=== PATIENT | female | born 1985 | race Two or more races ===

== ENCOUNTER 2018-05-28 08:01 | Emergency (ER) | payer OTHER ==
[2018-05-28 08:09] VITALS: BP 104/59; PULSE 86; TEMP 98.4; BMI 39.0
--- NOTE | 2018-05-28 08:37 | PDOC ---
History of Present Illness - General Chief Complaint: Cold Symptoms Stated Complaint: COLD SYMPTOMS Time Seen by Provider: 05/28/18 08:20 History Source: Patient Exam Limitations: No Limitations - History of Present Illness Initial Comments: 05/28/18 09:02 Came to ER for evaluation of worsening cough, wheezing, general body aches, chills but no fevers. States onset was 2 days ago and is progressively worsened. Is coughing with no phlegm production. Has used albuterol at home but not improving. Timing/Duration: reports: just prior to arrival, getting worse Severity: reports: mild, moderate Modifying Factors: improves with: albuterol inhaler Associated Symptoms: reports: cough, dizziness, fever/chills, lightheadedness, muscle aches, nasal congestion, wheezing Past History - Travel Traveled outside of the country in the last 30 days: No Close contact w/someone who was outside of country & ill: No - Past Medical History Allergies/Adverse Reactions: Allergies Allergy/AdvReac Type Severity Reaction Status Date / Time No Known Allergies Allergy Verified 05/28/18 08:04 Home Medications: Ambulatory Orders Albuterol 0.083% Nebulizer Demetria [Ventolin 0.083% Nebulizer Soln -] 1 neb NEB Q4H PRN #30 vial 05/28/18 predniSONE [Deltasone -] 20 mg PO BID #8 tablet 05/28/18 COPD: No - Immunization History Immunization Up to Date: Yes - Suicide/Smoking/Psychosocial Hx Smoking History: Current some day smoker Number of Cigarettes Smoked Daily: 5 Information on smoking cessation initiated: No Hx Alcohol Use: No Drug/Substance Use Hx: No Review of Systems - Review of Systems Able to Perform ROS?: Yes Is the patient limited Salvadorean proficient: Yes Constitutional: Yes: Symptoms Reported, See HPI, Fever, Malaise HEENTM: Yes: Symptoms Reported, See HPI, Nose Congestion, Throat Pain, Difficulty Swallowing Respiratory: Yes: Symptoms reported, See HPI, Cough, Shortness of Breath, Wheezing ABD/GI: Yes: See HPI. No: Symptoms Reported Musculoskeletal: Yes: See HPI. No: Symptoms Reported Neurological: Yes: Symptoms reported, See HPI, Headache All Other Systems: Reviewed and Negative *Physical Exam - Vital Signs Last Vital Signs Temp Pulse Resp BP Pulse Ox 98.4 F 86 18 104/59 L 99 05/28/18 08:05 05/28/18 08:05 05/28/18 08:05 05/28/18 08:05 05/28/18 08:05 - Physical Exam General Appearance: Yes: Nourished, Appropriately Dressed, Apparent Distress, Mild Distress HEENT: positive: EOMI, ANUJA, Normal ENT Inspection, TMs Normal, Pharynx Normal Neck: positive: Supple. negative: Tender Respiratory/Chest: positive: Chest Tender, Decreased Breath Sounds, Wheezing ( faint bilteral). negative: Lungs Clear, Normal Breath Sounds, Rhonchi Gastrointestinal/Abdominal: positive: Soft. 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 NML intact, Fully Oriented Moderate Sedation - Procedure Monitoring Vital Signs: Procedure Monitoring Vital Signs Temperature 98.4 F 05/28/18 08:05 Pulse Rate 86 05/28/18 08:05 Respiratory Rate 18 05/28/18 08:05 Blood Pressure 104/59 L 05/28/18 08:05 O2 Sat by Pulse Oximetry (%) 99 05/28/18 08:05 *DC/Admit/Observation/Transfer Diagnosis at time of Disposition: URI with cough and congestion - Discharge Dispostion Disposition: HOME Condition at time of disposition: Stable Decision to Admit order: No - Referrals - Patient Instructions Printed Discharge Instructions: DI for Viral Upper Respiratory Infection -- Adult Additional Instructions: Rest, drink lots of fluids: Teas, water, soups, Pedialyte Saltwater gargles Steamy showers/seem to face break up mucus Avoid contact with others until fevers and cough resolved Lots of handwashing and good hygiene Continue [id number] medications for symptomatic relief Tylenol or Motrin for fever and pain Continue albuterol nebulizers every 4-6 hours for the next 2 days then as needed for continued cough Prednisone as directed until completed Followup with private physician in one to 2 days Return to emergency department / pediatric hospital for worsened symptoms, fevers, dehydration - Post Discharge Activity Forms/Work/School Notes: Back to Work
[2018-05-28] MEDS ORDERED: ALBUTEROL SO4 2.5/IPRATROPIUM 0.5 INH SOL 3 ML VIAL.NEB. NEB ONE (09:02)
[2018-05-28] MEDS: ALBUTEROL SO4 2.5/IPRATROPIUM 0.5 INH SOL 3 ML VIAL.NEB. NEB SCH ×2 (09:05→09:22)
[2018-05-28] MEDS ORDERED: predniSONE 20 MG TABLET (UD) PO ONE (09:28)
[2018-05-28] MEDS ORDERED: predniSONE 20 MG TABLET (UD) ONE (09:42)
[2018-05-28] MEDS ORDERED: ACETAMINOPHEN 500 MG TABLET (FP) ONE (09:49)
== END 2018-05-28 10:18 | disposition home or self-care (01) ==
LOC: JERFT 08:01
PROC: 3E0F7GC Introduction of Other Therapeutic Substance into Respiratory Tract, Via Natural or Artificial Opening (ICD-10-PCS; principal; 2018-05-28)
DX: J06.9 Acute upper respiratory infection, unspecified (principal); B97.89 Other viral agents as the cause of diseases classified elsewhere
CPT/HCPCS: 84703; 87804; 99281-25

== ENCOUNTER 2024-05-03 21:39 | Emergency (ER) | payer OTHER ==
[2024-05-03 21:49] VITALS: BP 121/80; PULSE 92; RESP 20; TEMP 98.1; BMI 40.6
[2024-05-03] MEDS ORDERED: ALBUTEROL SO4 2.5/IPRATROPIUM 0.5 INH SOL 3 ML VIAL.NEB. NEB ONE ×3 (22:26→23:03)
[2024-05-03] MEDS: ALBUTEROL SO4 2.5/IPRATROPIUM 0.5 INH SOL 3 ML VIAL.NEB. NEB ONE (22:27)
[2024-05-03] MEDS ORDERED: AZITHROMYCIN 500 MG TABLET PO ONE (23:03)
[2024-05-03] MEDS ORDERED: AZITHROMYCIN 500 MG TABLET ONE (23:03)
== END 2024-05-03 23:00 | disposition home or self-care (01) ==
LOC: JER 21:39 → JERFT 21:39
PROC: 3E0F7GC Introduction of Other Therapeutic Substance into Respiratory Tract, Via Natural or Artificial Opening (ICD-10-PCS; principal; 2024-05-03)
DX: J45.20 Mild intermittent asthma, uncomplicated (principal); R09.81 Nasal congestion; R05.9 Cough, unspecified; J40 Bronchitis, not specified as acute or chronic
CPT/HCPCS: 71046-TC-FY; 99284-25